=== PATIENT | male | born 1985 | race Caucasian/White ===

== ENCOUNTER 2023-01-02 11:15 | Outpatient (CLI) | payer OTHER | END 2023-01-02 11:16 | disposition home or self-care (01) | LOC: RAD 11:15 | PROVIDERS: ATTEND Chiropractor | DX: M54.50 Low back pain, unspecified (principal); M53.86 Other specified dorsopathies, lumbar region; M47.816 Spondylosis without myelopathy or radiculopathy, lumbar region | CPT/HCPCS: 72100 ==